=== PATIENT | female | born 1965 | race Caucasian/White ===

== ENCOUNTER 2024-04-27 19:59 | Emergency (ER) | payer OTHER, SELFPAY ==
--- NOTE | 2024-04-27 20:14 | CRLHL7_ITS ---
For Patients: As a result of the Century Cures Act, medical imaging exams and procedure reports are released immediately into your electronic medical record. You may view this report before your referring provider. If you have questions, please contact your health care provider. Indication: Trauma. Technique: Three views of the left wrist. Comparison: None. Findings: Comminuted acute fracture of the distal radius with dorsal displacement of the distal fracture fragment by approximately 3 mm. Fracture lines extend to the radiocarpal articular surface. Additional displaced fracture of the ulnar styloid is apparent. No dislocation. Soft tissue swelling is present at the wrist. No radiopaque foreign body. Impression: Comminuted displaced fracture of the distal radius with additional displaced fracture of the ulnar styloid. Dictated by Kain Baron MD @ 04/27/2024 8:55:50 PM (Electronically Signed)
[2024-04-27 20:16] VITALS: BP 173/11; PULSE 77; RESP 18; TEMP 37; O2SAT 98; BMI 24.5
--- NOTE | 2024-04-27 20:37 | ED_ITS ---
HPI - Extremity Injury (Upper) General Date Seen: 04/27/24 Chief Complaint: Extremity Pain/Injury, Upper Stated Complaint: L arm injury Time Seen by Provider: 04/27/24 20:13 Source: patient, family and RN notes reviewed Mode of arrival: ambulatory Limitations: no limitations History of Present Illness HPI narrative: Patient is a very nice 58-year-old lady, who injured her left wrist, when she went to kick at check-in, she then fell and landed on her left wrist, more of a contusion type mechanism, as she was wearing a smart watch. She has a pain over her distal radial area. And really inability to move her wrist, she says her pain does radiate up to her elbow, but her elbow has full range of motion, she denies hitting her head, there is no loss of consciousness, she presents here with her , she is not on any prescription medications, complaint: injury to: left, arm and wrist Onset (ago): minute(s) Other injuries: none Hand dominance: Right Place: home Severity: moderate Relieving factors: cold therapy, immobilization and medication Exacerbating factors: movement of extremity Context: fall and direct blow Associated symptoms: denies other symptoms Treatments prior to arrival: cold therapy, NSAIDS and splint Related Data Allergies Allergy/AdvReac Type Severity Reaction Status Date / Time No Known Drug Allergies Allergy Verified 04/27/24 20:32 Review of Systems Status of ROS: Reports: 10 or more systems reviewed and unremarkable except as noted in History and below Exam Narrative: Exam Narrative: I see her in the triage room, and then she is placed in room 3, she is in no apparent distress, her neck is full range of motion, flexion extension lateral flexion rotation there is no palpable cervical spine tenderness, she denies any injury to her head, her pupils are equal round reactive to light, her left wrist is swollen over the distal radial area, more on the dorsal aspect, there is no significant deformity, but she has a hard time moving her fingers but is able to move all her fingers into flexion, her cap refill is excellent there is no sensory problems her radial pulses strong, her elbow no elbow has full range of motion of flexion extension, and also supination pronation does she does localize some pain in her distal radius. The shoulder is nontender to palpation, as is the upper arm into her clavicle which is also nontender. Const: Vital Signs, click to edit/add: Vital Signs - 24 hr 04/27/24 20:16 Temperature 98.6 F Pulse Rate [Right Pulse Oximeter] 77 Respiratory Rate 18 Blood Pressure [Ri ght Upper Arm] 173/11 H Pulse Oximetry 98 Oxygen Delivery Me thod Room Air Documenting provider has reviewed patient's vital signs: yes Course Course ED Course: I was able to explain the fracture to her, since there is really mild displacement, and really no significant angulation I think it the best thing would be to put her in the anterior posterior splint, sling and have her follow- up with orthopedics tomorrow, we made her appointment for tomorrow afternoon for Orthopedics. I placed her in the above-mentioned forearm splint. Post splinting, neurovascular status was excellent of her fingers, she was able to move them around. Should we did have her remove her ring, so if swelling would occur. Good radial pulse. There were no complications I did talk to her about pain medication using Tylenol ibuprofen, she can supplement this with some oxycodone the risks benefits and side effects of this were discussed in detail with her. She accepts these. Vital Signs Vital signs: Initial Vital Signs Temperature 98.6 F 04/27/24 20:16 Temperature Source Temporal Artery Scan 04/27/24 20:16 Pulse Rate 77 04/27/24 20:16 Pulse Rhythm Regular 04/27/24 20:16 Pulse Strength 3+ Normal 04/27/24 20:16 Respiratory Rate 18 04/27/24 20:16 Blood Pressure 173/11 H 04/27/24 20:16 Blood Pressure Mean 65 L 04/27/24 20:16 Blood Pressure Position Sitting 04/27/24 20:16 Pulse Oximetry 98 04/27/24 20:16 Oxygen Delivery Method Room Air 04/27/24 20:16 Vital Signs Temperature 98.6 F 04/27/24 20:16 Pulse Rate 77 04/27/24 20:16 Respiratory Rate 18 04/27/24 20:16 Blood Pressure 173/11 H 04/27/24 20:16 Pulse Oximetry 98 04/27/24 20:16 Oxygen Delivery Method Room Air 04/27/24 20:16 Temperature 98.6 F 04/27/24 20:16 Pulse Rate 77 04/27/24 20:16 Respiratory Rate 18 04/27/24 20:16 Blood Pressure 173/11 H 04/27/24 20:16 Pulse Oximetry 98 04/27/24 20:16 Oxygen Delivery Method Room Air 04/27/24 20:16 MDM - Extremity Injury (Upper) Differential Diagnosis Differential diagnosis: Likely sprain and strain of wrist, fracture of wrist, Colles' fracture, fracture of hand, dislocation of shoulder and fracture of humerus Medical Records Attestation: I reviewed the patient's medical records. Imaging Data Wrist x-ray: Attestation: I have reviewed the pertinent imaging results. My impression: Distal radial fracture, with fracture of the ulnar styloid, no significant displacement, or angulation. Radiologist's impression: atient: CARRIE DAWSON Facility:?[facility] Patient ID:?[id number] Site Patient ID:?[id number]. Site :?[id number] Study:?XRay-Extremity Left WRIST 3V-04/27/2024 8:34:32 PM Ordering Physician:?Shirley Hernandez Final Report: Indication: Trauma. Technique: Three views of the left wrist. Comparison: None. Findings: Comminuted acute fracture of the distal radius with dorsal displacement of the distal fracture fragment by approximately 3 mm. Fracture lines extend to the radiocarpal articular surface. Additional displaced fracture of the ulnar styloid is apparent. No dislocation. Soft tissue swelling is present at the wrist. No radiopaque foreign body. Impression: Comminuted displaced fracture of the distal radius with additional displaced fracture of the ulnar styloid. Dictated by Kain Baron MD @ 04/27/2024 8:55:50 PM (Electronic Signature) Discharge Plan Discharge Clinical Impression: Closed fracture distal radius and ulna Patient Disposition: Home w/ Parent or Adult Condition: Stable Instructions: Arm Fracture in Adults (DC), Wrist Fracture in Adults (ED) Additional Instructions: We will get her follow-up with Orthopedics, I do recommend that you fill the prescription for oxycodone so you have, he do not need to use this if he just 1 use Tylenol and ibuprofen, elevation is also here. It will ache tonight no matter what we do. Please do not use her left upper extremity, no use of alcohol with the pain medication please. If he do use the pain medication use a stool softener goes you will 100% become constipated. Activity Level: Light activity Follow Up/Referrals: Provider,Not a Local [Primary Care Provider] - Stand Alone Forms: [employer] Info Instructions
== END 2024-04-27 21:13 | disposition home or self-care (01) ==
PROVIDERS: Emergency Provider Family Medicine
DX: S52.502A Unspecified fracture of the lower end of left radius, initial encounter for closed fracture (principal); S52.602A Unspecified fracture of lower end of left ulna, initial encounter for closed fracture; W01.0XXA Fall on same level from slipping, tripping and stumbling without subsequent striking against object, initial encounter
CPT/HCPCS: 73110; 99283; 99284

== ENCOUNTER 2024-04-29 13:57 | Outpatient (CLI) | payer OTHER, SELFPAY | END 2024-04-29 13:58 | disposition home or self-care (01) | PROVIDERS: Visit Provider Nurse Practitioner Family | DX: Z01.818 Encounter for other preprocedural examination (principal) | CPT/HCPCS: 80053; 85025 ==

== ENCOUNTER 2024-05-01 07:32 | Day surgery (SDC) | payer OTHER, SELFPAY ==
--- OUTSIDE RECORDS SUMMARY | 2024-05-01 07:36 | XMS_ITS | Referral Summary ---
Author Organization [facility] Address [address] [place] [id number] Care Team Providers Care Clay Products Machine Operator Name Role Phone Unavailable Primary Care Provider Unavailabl e Source Comments Patient records contain information from all sites at [facility]. For routine questions regarding patient records, call [phone] during business hours, M-F 8:00 AM - 5:00 PM Central Time. Record requests for emergency care only can be directed to [phone] at any time.[facility] Medications Medication Sig Dispensed Refills Start Date End Date Status cyanocobalamin (VITAMIN B12) 100 mcg tablet Take 100 mcg by mouth daily. Active docosahexaenoic acid-epa 120-180 mg capsule Take 2 g by mouth daily. Active Social History Tobacco Use Types Packs/Day Years Used Date Smoking Tobacco: Never Assessed Humiliation, Afraid, Rape, and Kick questionnair e Answer Date Recorded Within the last year, have y ou been afraid of your partner or ex-partner? No 11/09/2022 Within the last year, have y ou been humiliated or emotionally abused in other ways by your partner or ex-partner? No Within the last year, have y ou been kicked, hit, slapped, or otherwise physically hurt by your partner or ex-partner? No 11/09/2022 Within the last year, have y ou been raped or forced to have any kind of sexual activity by your partner or ex-partner? No 11/09/2022 Social Connection and Isolat ion Panel [NHANES] Answer Date Recorded In a typical week, how many times do you talk on the phone with family, friends, or neighbors? More than three times a week 11/09/2022 How often do you get togethe r with friends or relatives? Twice a week 11/09/2022 How often do you attend chur ch or islam services? 1 to 4 times per year 11/09/2022 Do you belong to any clubs o r organizations such as taoism groups, unions, fraternal or athletic groups, or school groups? Yes 11/09/2022 How often do you attend meet ings of the clubs or organizations you belong to? More than 4 times per year 11/09/2022 Are you , , di vorced, , never , or living with a partner? 11/09/2022 AUDIT-C Answer Date Recorded Q1: How often do you have a drink containing alc ohol? 2-3 times a week 11/09/2022 Q2: How many drinks containi ng alcohol do you have on a typical day when you are drinking? 1 or 2 11/09/2022 Q3: How often do you have si x or more drinks on one occasion? Never 11/09/2022 Overall Financial Resource Strain (CARDIA) Answe r Date Recorded How hard is it for you to pa y for the very basics like food, housing, medical care, and heating? Somewhat hard 11/09/2022 [facility] [place] of Occupat ional Health - Occupational Stress Questionnaire Answer Date Recorded Do you feel stress - tense, restless, nervous, or anxious, or unable to sleep at night because your mind is troubled all the time - these days? To some extent 11/09/2022 Exercise Vital Sign Answer Date Recorde d On average, how many days pe r week do you engage in moderate to strenuous exercise (like a brisk walk)? 7 days 11/09/2022 On average, how many minutes do you engage in exercise at this level? 30 min 11/09/2022 Hunger Vital Sign Answer Date Recorded Within the past 12 months, y ou worried that your food would run out before you got the money to buy more. Never true 11/10/19 23 Within the past 12 months, t he food you bought just didn't last and you didn't have money to get more. Never true 11/09/2022 PRAPARE - Transportation Answer Date Re corded In the past 12 months, has l ack of transportation kept you from medical appointments or from getting medications? No 10/22 In the past 12 months, has l ack of transportation kept you from meetings, work, or from getting things needed for daily living? No 11/09/2022 Housing Stability Vital Sign Answer Delbert e Recorded In the last 12 months, was t here a time when you were not able to pay the mortgage or rent on time? No 11/09/2022 In the last 12 months, how many places have you lived? 2 11/09/2022 In the last 12 months, was t here a time when you did not have a steady place to sleep or slept in a longterm (including now)? No 11/09/2022 Nutrition Answer Date Recorded Nutrition: EVOO Fat Source No 11/09 On average, how many serving s of fruits and vegetables do you eat per day (serving size is equal to 1 cup or approximately the size of a tennis ball)? 2-3 11/09/2022 Dental Answer Date Recorded Dental: Regular Dentist Yes 11/10/19 Employment Answer Date Recorded Employment status Employed and actively working without restrictions 11/09/2022 Education Answer Date Recorded What is the highest level of school you have completed or the highest degree you have received? Bachelor's degree (e.g., BA, AB, BS) 11/09/2022 Sex and Gender Information Value Date Recorded Sex Assigned at Female 11/09/2022 9:13 PM CDT Gender Identity Female 11/09/2022 9:13 PM CDT Sexual Orientation Straight 11/09/2022 9: 13 PM CDT Plan of Treatment Not on file
--- OUTSIDE RECORDS SUMMARY | 2024-05-01 07:36 | XMS_ITS ---
Author Organization [facility] Address [address] [place] [address] Care Team Providers Care Head Scorer Name Role Phone Unavailable Unavailable Unavailable Surgery Details Not on file Complications Check Surgery Details section. Procedure Estimated Blood Loss Check Surgery Details section. Procedure Findings Check Surgery Details section. Procedure Specimens Taken Check Surgery Details section.
--- OUTSIDE RECORDS SUMMARY | 2024-05-01 07:36 | XMS_ITS | Clinical Summary ---
Author Organization [facility] Address [address] [place] [address] Care Team Providers Care Dry Charge Process Attendant Name Role Phone Unavailable Primary Care Provider Unavailabl e Source Comments Patient records contain information from all sites at [facility]. For routine questions regarding patient records, call [phone] during business hours, M-F 8:00 AM - 5:00 PM Central Time. Record requests for emergency care only can be directed to [phone] at any time.[facility] Medications Medication Sig Dispensed Refills Start Date [...] often do you attend chur ch or restorationist services? 1 to 4 times per year 11/09/2022 Do you belong to any clubs o r organizations such as bahai groups, unions, fraternal or athletic groups, or [...] medical care, and heating? Somewhat hard 11/09/2022 [facility] [place] of Occupat ional Health - Occupational Stress [...] place to sleep or slept in a usp (including now)? No 11/09/2022 Nutrition Answer Date [...] 9: 13 PM CDT Plan of Treatment Health Maintenance Due Date Last Done Comments CT Colonography 1965 Cologuard 1965 Colonoscopy 1965 Colorectal Cancer Screening 1965 FIT 1965 Fasting Glucose for Diabetes Screening 1965 HIV Screening 1965 Hepatitis C Screening 1965 Lipid (Cholesterol) Screening 1965 Hepatitis B Vaccines (1 of 3 - 19+ 3-dose series) 1983 Mammogram 05/31/2018 05/31/2017, 03/24, 09/01/2014 DTaP,Tdap,and Td Vaccines (2 - Td or Tdap) 12/06/2022 12/06/2012 Depression Screening (Annual PHQ-2) 07/23/2023 Cervical Cancer Screening 02/09/2024 02/08/2021 COVID-19 Vaccine ( season) 2024 08/10/2021, 12/09/2020, 11/11/2020 Influenza Vaccine (#1) 2024 7, 05/01/2017, 05/03/2016, Additional history exists Zoster Vaccines Completed 07/08/2019, 05/08/2019 Pneumococcal vaccine (0-64 years) Aged Out No longer eligible based on patient's age to complete this topic [id number] [place] [place] [id number]
[2024-05-01 07:51] VITALS: BMI 25.2
[2024-05-01 08:14] VITALS: BP 144/84; PULSE 66; RESP 16; TEMP 36.2; O2SAT 99
[2024-05-01] MEDS: SODIUM CHLORIDE 0.9 % (FLUSH) 10 ML SYRINGE IVF ×2 (08:15→09:39)
[2024-05-01] MEDS: MIDAZOLAM HCL 1 MG/ML inj IVP (09:39)
[2024-05-01] MEDS: fentaNYL 100 MCG/2 ML inj IVP (09:39)
[2024-05-01 09:40] VITALS: BP 136/76; PULSE 64; RESP 16; O2SAT 99
[2024-05-01 09:45] VITALS: BP 122/79; PULSE 70; RESP 16; O2SAT 99
--- NOTE | 2024-05-01 10:00 | CRLHL7_ITS ---
For Patients: As a result of the Cures Act, medical imaging exams and procedure reports are released immediately into your electronic medical record. You may view this report before your referring provider. If you have questions, please contact your health care provider. Indication: LEFT WRIST ORIF Technique: Five fluoroscopic images left wrist. Fluoroscopic time 50.0 seconds. IMPRESSION: Fluoroscopic guidance for open reduction internal fixation distal radial fracture. Dictated by Ori Tirado MD @ 05/01/2024 11:42:52 AM (Electronically Signed)
--- NOTE | 2024-05-01 10:01 | SUR.PREOP ---
TIME?OUT:?0939 PT/RN/MDA?VERIFICATION?OF?SURGICAL?SITE,?PROCEDURE,?AND?CONSENT OBTAINED?PRIOR?TO?INVASIVE?PROCEDURE.
[2024-05-01] MEDS: CEFAZOLIN 2 GM INJ IVP (10:15)
--- NOTE | 2024-05-01 11:20 | P.ORPRC_ITS ---
Procedure Note Date of procedure: 05/01/24 Procedure: PREOPERATIVE DIAGNOSIS: Angulated 3+ part intra-articular left upper extremity distal radius fracture POSTOPERATIVE DIAGNOSIS: Angulated 3+ part intra-articular left upper extremity distal radius fracture NAME OF OPERATION: Open reduction internal fixation SURGEON: Toño Chua MD SENIOR CORPORATE STRATEGY MANAGER: PRERNA Miles ANESTHESIA: Supraclavicular block plus monitored anesthesia care ESTIMATED BLOOD LOSS: 0 mL COMPLICATIONS: None SPECIMENS: None DRAINS: None PREOPERATIVE ANTIBIOTICS: Ancef 1 g INDICATIONS: The patient is a 58-year-old who fell landing on their upper extremity sustaining the above injury. Given the amount of angulation, reduction and plate fixation were recommended. The risks, benefits and expected outcomes were discussed in detail. These included but were not limited to: Infection, bleeding, injury to blood vessel or nerve, venous thromboembolism. All questions were answered to their satisfaction. Use of an salon shampoo assistant was necessary throughout the case for patient positioning and safety, maintenance of the reduction, surgical site dressing and splint application. PROCEDURE: A supraclavicular block was placed by Anesthesia. The patient was placed supine on the operating room table. IV sedation was administered. The reduction was obtained with longitudinal traction and volar force on the distal fragment, held by the salon shampoo assistant. The image intensifier was used to confirm an e xcellent reduction. The extremity was prepped and draped in the usual sterile fashion. The limb was exsanguinated with the Meet bandage. The pneumatic tourniquet was inflated to 250 mm of mercury. A longitudinal incision was made over the flexor carpi radialis. Subcutaneous dissection was taken sharply through the FCR sheath. The FCR was retracted radially. Sharp dissection was carried th rough the floor of the FCR sheath. The flexor pollicis longus was retracted ulnarly. Sharp dissection was carried through the radial border of the pronator quadratus which was elevated ulnarly, exposing the fracture site. The salon shampoo assistant held retractors to expose the fracture. The volar cortex of the fracture is anatomically aligned. We placed a Synthes standard, 3 hole volar locking plate over the volar cortex. It was provisionally held with a BB tack x 2, while the salon shampoo assistant held the reduction. Its placement was confirmed with the image intensifier. We placed a cortical screw in the slot. We placed a locking screw in the shaft. We then filled the distal screw holes with smooth locking pegs using the image intensifier to confirm their extra-articular placement. Finally, a 2nd locking screw was placed in the shaft fragment. This construct was imaged in multiple views and was felt to be well placed with an anatomic reduction and well placed implants. The intra-articular split appears anatomically reduced. There was a marked amount of dorsal comminution. The wound was irrigated normal saline. Subcutaneous tissues were reapproximated with a 2-0 Vicryl, skin with a running 3-0 Monocryl in a subcuticular fashion. Glue was used to seal the skin. A dry dressing and short-arm dorsal volar splint was applied. These steps were all completed by the salon shampoo assistant. The tourniquet was released, sponge and needle counts were correct x2. The patient tolerated the procedure well, there were no apparent complications. They were taken to the postanesthesia care unit in satisfactory condition. PLAN: The patient will be discharged home. They will work on elevation of the hand and active range of motion of the fingers. They will follow up next week in the office for a wound check with a PA, oblique, lateral and fossa lateral view of the wrist out of the splint prior to being seen in preparation for early active motion with a Velcro wrist brace.
[2024-05-01 11:33] VITALS: BP 105/65; PULSE 70; RESP 16; TEMP 36.6; O2SAT 99
--- NOTE | 2024-05-01 11:36 | W.ANESCHARGE ---
Anesthesia Charges Start Date/Time Anesthesia Start Date: 05/01/24 Anesthesia Start Time: 10:05 Stop Date/Time Anesthesia Stop Date: 05/01/24 Anesthesia Stop Time: 11:35
--- NOTE | 2024-05-01 11:38 | P.NB_ITS ---
Nerve Block Nerve Block Time Seen by Provider: 09:40 Date Seen: 05/01/24 Type of block requested by surgeon for post-operative analgesia: axillary Side: left Time out performed: Yes Verification of patient name: Yes Verification of date of : Yes Site marking: site marked Name of person performing procedure: Issa Continuous monitoring Was continuous monitoring of O2 sat, B/P, cardiac exercise specialist, recorded every 15 minutes?: Yes Procedure Checklist: sterile prep, needles and gloves Ultrasound guided. Images saved: Yes Medications given in 5ml increments after negative aspiration: Ropivicaine %: 0.5 mL: 30 Needle gauge: 22 Patient tolerated procedure well: Yes Additional comments: Needle noted adjacent to nerve Block Charges Block Charge (with Pro Fee): Brachial Plexus Use of Ultrasound Machine for Block: Yes- US Guidance/pain block
--- NOTE | 2024-05-01 11:38 | W.ANESCHARGE ---
Anesthesia Charges Start Date/Time Anesthesia Start Date: 05/01/24 Anesthesia Start Time: 10:05 Stop Date/Time Anesthesia Stop Date: 05/01/24 Anesthesia Stop Time: 11:35
[2024-05-01 11:45] VITALS: BP 120/85; PULSE 66; RESP 16; O2SAT 95
[2024-05-01 12:00] VITALS: BP 112/75; PULSE 69; RESP 16; O2SAT 95
== END 2024-05-01 12:58 | disposition home or self-care (01) ==
PROVIDERS: Visit Provider Orthopaedic Surgery
PROC: (CPT 25575; principal; 2024-05-01 10:00)
DX: S52.572A Other intraarticular fracture of lower end of left radius, initial encounter for closed fracture (principal); G89.18 Other acute postprocedural pain
CPT/HCPCS: 25609; 01830; 64415; 73110; 76000; 76942; A4580; C1713; J0690; J1100; J2250; J2405; J2704; J2795; J3010

== ENCOUNTER 2024-05-22 11:04 | Outpatient (CLI) | payer OTHER, SELFPAY ==
--- OUTSIDE RECORDS SUMMARY | 2024-05-22 11:15 | XMS_ITS | Referral Summary ---
Author Organization [facility] Address [address] [place] [address] Care Team Providers Care Manganese Breaker Name Role Phone Unavailable Primary Care Provider Unavailabl e Source Comments Patient records contain information from all sites at [facility]. For routine questions regarding patient records, call [phone] during business hours, M-F 8:00 AM - 5:00 PM Central Time. Record requests for emergency care only can be directed to [phone] at any time.[facility] Medications cyanocobalamin (VITAMIN B12) 100 mcg tablet Take [...] often do you attend chur ch or roman catholic services? 1 to 4 times per year 11/09/2022 Do you belong to any clubs o r organizations such as yazidism groups, unions, fraternal or athletic groups, or [...] medical care, and heating? Somewhat hard 11/09/2022 [facility] [place] of Occupat ional Health - Occupational Stress [...] place to sleep or slept in a assisted (including now)? No 11/09/2022 Nutrition Answer Date Recorded On average, how many serving s of [...] Bachelor's degree (e.g., BA, AB, BS) 11/09/2022 Comments Unknown Sex and Gender Information Value Date Recorded Sex Assigned at Female 11/09/2022 9:13 PM CDT Legal Sex Female 2:25 PM CDT Gender Identity Female 11/09/2022 9:13 PM CDT Sexual Orientation Straight 11/09/2022 9: 13 PM CDT Plan of Treatment Not on file Insurance [employer]
--- OUTSIDE RECORDS SUMMARY | 2024-05-22 11:15 | XMS_ITS ---
Author Organization [facility] Address [address] [place] [address] Care Team Providers Care Diesel Engine Ii Pipe Fitter Name Role Phone Unavailable Unavailable Unavailable Surgery Details Not on file Complications Check Surgery Details section. Procedure Estimated Blood Loss Check Surgery Details section. Procedure Findings Check Surgery Details section. Procedure Specimens Taken Check Surgery Details section.
--- OUTSIDE RECORDS SUMMARY | 2024-05-22 11:15 | XMS_ITS | Clinical Summary ---
Author Organization [facility] Address [address] [place] [id number] Care Team Providers Care Net Repairer Name Role Phone Unavailable Primary Care Provider Unavailabl e Source Comments Patient records contain information from all sites at [facility]. For routine questions regarding patient records, call [phone] during business hours, M-F 8:00 AM - 5:00 PM Central Time. Record requests for emergency care only can be directed to [phone] at any time.[facility] Medications cyanocobalamin (VITAMIN B12) 100 mcg tablet [...] often do you attend chur ch or advent services? 1 to 4 times per year 11/09/2022 Do you belong to any clubs o r organizations such as synagogue groups, unions, fraternal or athletic groups, or [...] medical care, and heating? Somewhat hard 11/09/2022 [facility] [place] [facility] Occupat ional [facility] - Occupational Stress [...] place to sleep or slept in a half-way (including now)? No 11/09/2022 Nutrition Answer Date [...] 12/06/2022 12/06/2012 Depression Screening (Annual PHQ-2) 07/23/2023 Cervical/Vaginal Cancer Screening 02/09/2024 02/08/2021 COVID-19 Vaccine ( - 2023- season) 2024 08/10/2021, 12/09/2020, 11/11/2020 Influenza Vaccine (#1) 2024 7, 05/01/2017, 05/03/2016, Additional history exists Zoster Vaccines Completed 07/08/2019, 05/08/2019 IPV Vaccines Aged Out No longer eligi ble based on patient's age to complete this topic Pneumococcal vaccine (0-64 years) Aged Out No longer eligible based on patient's age to complete this topic Insurance [employer] [facility] [employer]
[2024-05-24 08:18] LABS: HPV Source Cervical; HPV, High Risk by TMA Not Detected
== END 2024-05-22 11:05 | disposition home or self-care (01) ==
PROVIDERS: PCP Nurse Practitioner Family; Visit Provider Nurse Practitioner Family
DX: M25.50 Pain in unspecified joint (principal); M79.10 Myalgia, unspecified site; Z12.4 Encounter for screening for malignant neoplasm of cervix; Z13.220 Encounter for screening for lipoid disorders
CPT/HCPCS: 80061; 84550; 85651; 86038; 86140; 86200; 86431; 87624; 87625; 88141; 88142

== ENCOUNTER 2024-07-24 16:45 | Outpatient (RCR) | payer BC, OTHER, SELFPAY | END 2024-09-19 13:19 | disposition home or self-care (01) | PROVIDERS: Visit Provider Orthopaedic Surgery | DX: R53.1 Weakness (principal); M25.632 Stiffness of left wrist, not elsewhere classified; M25.532 Pain in left wrist; Z98.890 Other specified postprocedural states; M79.10 Myalgia, unspecified site; Z51.89 Encounter for other specified aftercare | CPT/HCPCS: 97110; 97140; 97165; X5282 ==

== ENCOUNTER 2024-08-18 08:14 | Outpatient (CLI) | payer SELFPAY ==
--- NOTE | 2024-08-18 08:15 | CRLHL7_ITS ---
For Patients: As a result of the Century Cures Act, medical imaging exams and procedure reports are released immediately into your electronic medical record. You may view this report before your referring provider. If you have questions, please contact your health care provider. BILATERAL SCREENING MAMMOGRAM WITH COMPUTER-AIDED DETECTION AND TOMOSYNTHESIS TECHNIQUE: CC and MLO views were obtained. These mammographic images have been obtained using full-field digital technique. These mammographic images were interpreted with the benefit of computer-aided detection. Breast Tomosynthesis was used in this interpretation. COMPARISON FILM: 01/25/21, 12/02/12, 11/28/11. FINDINGS: The breasts are heterogeneously dense, which may obscure small masses. IMPRESSION: There is no radiographic evidence for malignancy. ASSESSMENT: BI-RADS Category 1: Negative RECOMMENDATION: Routine screening mammogram in 1 year. A lay language report of this examination will be provided to the patient. Ori Tirado M.D. Diagnostic Radiologist [email or web address] SP/Dictated by: Ori Tirado MD @ 08/18/2024 12:26:00 PM (Electronically Signed)
== END 2024-08-18 08:15 | disposition home or self-care (01) ==
LOC: MAMMO 08:15
PROVIDERS: PCP Nurse Practitioner Family; Visit Provider Nurse Practitioner Family
DX: Z12.31 Encounter for screening mammogram for malignant neoplasm of breast (principal); R92.333 Mammographic heterogeneous density, bilateral breasts
CPT/HCPCS: 77063; 77067

== ENCOUNTER 2025-02-19 08:15 | Outpatient (RCR) | payer BC, SELFPAY ==
--- NOTE | 2024-10-16 17:39 | OT.OPOE ---
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 Medical/Functional History Medical History Reviewed Yes Prior Level of Function/Mobility Pt was still working through her final stages of strengthening rehab following her DR fx with ORIF on but was doing quite well. Pt was sick most of the month of August and found herself scrolling on her phone and tablet a lot and wonders if this may have irritated her hand. Social History Employment Status [employer] Employ[employer] Current Occupation Computer work Critical Job Demands Static Sitting Other Critical Job Demands Keyboard/mouse Hobbies [employer] Pt is a runner, exercises regularly. Ortho Subjective Subjective Subjective Pt has been having pin on the radial side of her wrist ever since her fx in April. Pt states the pain has been getting worse. Pt states she saw 2 weeks ago, she got a thumb spica splint and has been icing and using Voltarin and her brace but it hasn't been helping. Pt has also tried using Tylenol and Iburpofen, this does not seem to help. Pt takes her splint off to do chores in the evening, states her thumb/ wrist feels stuck and she has to loosen up everything before she can use her hand. Pt states she can't groom her horses, she can't groom her horses, can't pull her pants and socks up, can't hold things like a fork while she cuts her steak as all of these things cause intense pain. Pt rates her 05/01. Goniometric Comments Goniometric Comments Goniometric Comments 10/16/24 Pt demonstrates full AROM throughout BUE with the exception of her LUE wrist / thumb which is as follows: Wrist: Flex/Ext: 40/35 UD/RD:10/8 Thumb: Opposition: Tip of MF Radial abd: 15 Palmar abd:25 Hand Pinch/Pocket Grinder Operator Strength Hand Pinch/Pocket Grinder Operator Strength Hand Pinch/Pocket Grinder Operator Strength Left Hand,Right Hand Left Hand Pocket Grinder Operator Strength Position 1 in Elbow 34 Flexion (lbs) Lateral Pinch Strength (lbs) 11 Three Point Pinch (lbs) 10 Right Hand Pocket Grinder Operator Strength Position 1 in Elbow 49 Flexion (lbs) Lateral Pinch Strength (lbs) 15 Three Point Pinch (lbs) 13 OT Objective Data Hand Hand Dominance Right Skin/Wounds/Edema Comments 10/16/24 Mild swelling is appreciated in the area of the LUE radial styloid. Upper Extremity Special Tests Tenosynovitis Wrist Finklestein Test Positive Left Upper Extremity Special Tests Comments Comments 10/16/24 Pt is very ttp over the radial styloid as well as into the distal tendons of APL and EPB. Also note tenderness into the mm bellies of APL and EPB. Pt has pain with wrist flex, ext, UD and RD. OT Problems Problems Problems Decreased Strength,Decreased Range of Motion,Pain,Lifting, Gripping,Pinching Other Problems Opening Containers,Computer Patient Potential Good Assessment Assessment Assessment Pt is a very pleasant 59yo referred to OT to address DeQuervain's tenosynovitis of the LUE. Pt demonstrates weakness and limited AROM in the LUE wrist/thumb and verbalizes moderate pain with most activities that involve use of her LUE. 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 Pt will benefit from skilled OT intervention to address pain, weakness, and limited AROM in the LUE in order to restore full, pain-free use of her LUE . Occupational Therapy Treatment Plan - OP Potential Rehabilitation Potential Good Set Goals Goals Set with Patient Yes Goals Goals 1. Pt will be independent and compliant with HEP in order to resume full, pain-free use of the involved UE. 3 weeks 2. Pt will demonstrate full, pain-free AROM of the involved UE in order to improve ability to grasp and hold. 6 weeks 3. Pt will demonstrate pain- free supervisor extrusion and pinch strength comparable to the uninvolved side in order to improve functional grasp, hold, reach, and lifting ability needed to complete self-care, leisure tasks, and work activities. 8 weeks. Treatment Plan Treatment Plan Evaluation,Edema Control, Iontophoresis,Manual Therapy, Splinting,Ultrasound, Therapeutic Exercise, Therapeutic Activities,Self Care/Home Management,Education Other Treatment Plan Dexamethasone Sodium Phosphate for use with iontophoresis Expected Frequency 1-2x Week Expected Duration 8-10 Weeks Home Program Home Program Home Program Initiated Home Program Specifics Provided low profile wrist based thumb spica to be worn the majority of the time, off for hygiene and HEP. Also provided training and practice in PROM of the LUE thumb with written instructions for home use. Certification Certification Statement I Certify That: Therapy Services Provided, Therapy Plan Established, Therapy Plan Reviewed Certification Information Clinic ID # [id number] Initial Certification Date 10/16/24 Recertification Due Date 01/14/25 Provider Signature Required Yes Provider Signature Shows Agreement With POC & Medical Necessity Physician NPI Number Write NPI# Here Physician Comment/Change Comment or Changes Physician Signature & Date Requested Please Sign/Date Here
== END 2025-02-19 12:49 | disposition home or self-care (01) ==
PROVIDERS: PCP Nurse Practitioner Family; Visit Provider Orthopaedic Surgery
DX: M65.4 Radial styloid tenosynovitis [de Quervain] (principal); R53.1 Weakness; M25.642 Stiffness of left hand, not elsewhere classified; M79.642 Pain in left hand; Z51.89 Encounter for other specified aftercare
CPT/HCPCS: 97033; 97035; 97110; 97140; 97165; 97535; X5282